=== PATIENT | female | born 1930 | race Caucasian/White ===

== ENCOUNTER → 2016-05-14 | Outpatient (CLI) | payer MEDICARE ==
[~2016-05-14] MED LIST: ASPIRIN EC81 MG PO; ELIQUIS2.5 MG PO; HYDRALAZINE HCL25 MG PO; IMDUR ER TAB 3030 MG PO; K-DUR TAB 20 M20 MEQ PO; LASIX 40 MG TAB40 MG PO; LASIX20 MG PO; LEVAQUIN250 MG PO; LIPITOR TAB 1010 MG PO; LISINOPRIL10 MG PO; LOPRESSOR 25 MG25 MG PO; MEGACE 400400 MG/10 PO; MEGACE TAB 20 M20 MG PO; NORVASC 5 MG TAB5 MG PO; TOPROL XL 50 MG50 MG PO; TYLENOL 325MG325 MG PO; TYLENOL W/CODEIN1 E1 PO
[2016-05-14 18:15] LABS: HEMOGLOBIN 11.4 gm/dl (12.3-15.3); RED BLOOD COUNT 3.71 M/UL (4.00-5.10); WHITE BLOOD COUNT 13.9 K/UL (4.5-11.0)
== END ==
LOC: LAB 17:35
PROVIDERS: Registered Nurse
DX: R50.9 Fever, unspecified (principal); Z91.041 Radiographic dye allergy status; Z91.040 Latex allergy status; Z91.013 Allergy to seafood; Z88.0 Allergy status to penicillin; Z88.1 Allergy status to other antibiotic agents; Z88.7 Allergy status to serum and vaccine
CPT/HCPCS: 36415; 85027

== ENCOUNTER → 2016-05-14 | Outpatient (CLI) | payer MEDICARE | LOC: KOH-I 16:42 | DX: R05 Cough (principal); R06.02 Shortness of breath; R91.8 Other nonspecific abnormal finding of lung field; Z91.040 Latex allergy status; Z91.041 Radiographic dye allergy status; Z91.018 Allergy to other foods; Z88.0 Allergy status to penicillin; Z88.7 Allergy status to serum and vaccine; Z88.1 Allergy status to other antibiotic agents | CPT/HCPCS: 71020 ==

== ENCOUNTER 2016-07-28 11:54 | Inpatient (IN) | payer MEDICARE ==
[~2016-07-28] VITALS: Ht 157.5 cm; Wt 61.7 kg
[2016-07-28 12:33] LABS: HEMOGLOBIN 10.8 gm/dl (12.3-15.3); RED BLOOD COUNT 3.68 M/UL (4.00-5.10)
[2016-07-28] MEDS ORDERED: LISINOPRIL10 MG PO (21:14)
[2016-07-28] MEDS ORDERED: NORVASC 5 MG TAB5 MG PO (21:14)
[2016-07-28] MEDS ORDERED: TOPROL XL 50 MG50 MG PO (21:15)
[2016-07-28] MEDS ORDERED: LIPITOR TAB 1010 MG PO (21:15)
[2016-07-29 04:30] LABS: HEMOGLOBIN 11.4 gm/dl (12.3-15.3); RED BLOOD COUNT 3.95 M/UL (4.00-5.10); WHITE BLOOD COUNT 8.3 K/UL (4.5-11.0)
[2016-07-30 05:35] LABS: HEMOGLOBIN 10.6 gm/dl (12.3-15.3); RED BLOOD COUNT 3.66 M/UL (4.00-5.10)
[2016-07-31 05:22] LABS: RED BLOOD COUNT 3.8 M/UL (4.00-5.10); WHITE BLOOD COUNT 7.2 K/UL (4.5-11.0)
[2016-07-31] MEDS ORDERED: ELIQUIS2.5 MG PO (11:23)
[2016-07-31] MEDS ORDERED: ASPIRIN EC81 MG PO (11:24)
[2016-07-31] MEDS ORDERED: K-DUR TAB 20 M20 MEQ PO (11:26)
[2016-07-31] MEDS ORDERED: LASIX 40 MG TAB40 MG PO (11:26)
[2016-08-26] MEDS ORDERED: TYLENOL 325MG325 MG PO (08:10)
[2016-08-27] MEDS ORDERED: LEVAQUIN250 MG PO (09:18)
[2016-08-27] MEDS ORDERED: TYLENOL W/CODEIN1 E1 PO (09:24)
[2016-09-10] MEDS ORDERED: LISINOPRIL10 MG PO (23:14)
[2016-09-10] MEDS ORDERED: MEGACE TAB 20 M20 MG PO (23:14)
[2016-09-16] MEDS ORDERED: MEGACE 400400 MG/10 PO (15:42)
[2016-10-08] MEDS ORDERED: LASIX20 MG PO (00:43)
[2016-10-09] MEDS ORDERED: HYDRALAZINE HCL25 MG PO (12:52)
[2016-10-09] MEDS ORDERED: IMDUR ER TAB 3030 MG PO (12:53)
[2016-10-09] MEDS ORDERED: LOPRESSOR 25 MG25 MG PO (12:55)
== END 2016-07-31 09:04 | disposition home or self-care (01) | DRG 291 ==
LOC: ER1 11:54 → ZEROF 16:25 → M/S 16:25
PROVIDERS: Emergency Medicine; Physician Assistant Medical; ADMIT Emergency Medicine
DX: I13.0 Hypertensive heart and chronic kidney disease with heart failure and stage 1 through stage 4 chronic kidney disease, or unspecified chronic kidney disease (principal); I50.23 Acute on chronic systolic (congestive) heart failure; N17.9 Acute kidney failure, unspecified; I48.92 Unspecified atrial flutter; N18.3 Chronic kidney disease, stage 3 (moderate); D64.9 Anemia, unspecified; I25.10 Atherosclerotic heart disease of native coronary artery without angina pectoris; E78.5 Hyperlipidemia, unspecified; T39.395A Adverse effect of other nonsteroidal anti-inflammatory drugs [NSAID], initial encounter; D69.6 Thrombocytopenia, unspecified; I44.7 Left bundle-branch block, unspecified; Z95.1 Presence of aortocoronary bypass graft; Z95.0 Presence of cardiac pacemaker; Z90.710 Acquired absence of both cervix and uterus; Z88.1 Allergy status to other antibiotic agents; Z88.7 Allergy status to serum and vaccine; Z82.3 Family history of stroke; Z82.49 Family history of ischemic heart disease and other diseases of the circulatory system; Z84.89 Family history of other specified conditions; Z91.19 Patient's noncompliance with other medical treatment and regimen
CPT/HCPCS: ECHO; 36415; 71010; 80048; 80053; 81001; 82550; 82553; 82607; 82728; 83540; 83735; 83874; 83880; 84439; 84443; 84466; 84484; 85025; 85027; 85045; 93005; 93306; 96374; 97110; 97116; 97530; 97535; 99285; J1644; J1940; J2270

== ENCOUNTER → 2016-08-03 | Outpatient (CLI) | payer MEDICARE | LOC: LAB 14:33 | PROVIDERS: Internal Medicine Cardiovascular Disease | DX: D69.6 Thrombocytopenia, unspecified (principal); E87.6 Hypokalemia | CPT/HCPCS: 80048; 85049 ==

== ENCOUNTER → 2016-08-12 | Outpatient (CLI) | payer MEDICARE | LOC: LAB 11:07 | PROVIDERS: Internal Medicine Cardiovascular Disease | DX: I50.22 Chronic systolic (congestive) heart failure (principal); R06.02 Shortness of breath; I25.9 Chronic ischemic heart disease, unspecified | CPT/HCPCS: 36415; 80048 ==